=== PATIENT | male | born 1985 | race Caucasian/White ===

== ENCOUNTER 2016-11-20 09:18 | Emergency (ER) | payer OTHER ==
--- NOTE | 2016-11-20 09:41 | ED NURSING NOTES ---
Clinical Report - Nurses [facility] [address] [place] [address] 11/20/2016 9:20 Patient: ROXANNE MO TRIAGE Triage time 09:15. Acuity: LEVEL 3. Chief Complaint: DRUG OVERDOSE (Pt. found in [employer] bathroom. Brought in with EMS and PD. Per PD, Pt. stated he took something. PD found a bottle of pills in the garbage and was concerned pt. took them. Pt. denies taking any pills at this time.). Alert. No acute distress. ( Pt. unable to hold still. Pt. is rocking back and forth and is picking at his skin.). SEPSIS SCREEN: Sepsis Screen. Negative (no infection suspected/documented). PEREZ COMA SCORE: Perez Coma Scale: 15- eyes open spontaneously (4); best verbal response- oriented x 4 (5); best motor response- obeys commands (6). --09:34 Noreen Bucio R.N. 09:21 11/20/16. BP: 162/71. HR: 92. RR: 16. O2 saturation: 100%. Temp: 98.6 F. Ny-Gonzalez pain scale: 2/10. --09:34 Noreen Bucio R.N. Weight: 77.1 kg stated. Height/Length: 73 inches Per Patient. BMI: 22.4. --09:31 Noreen Bucio R.N. Medications None. --09:33 Noreen Bucio R.N. Allergies No Known Drug Allergy. --09:33 Noreen Bucio R.N. History Arrived by EMS. Historian: patient. Unaccompanied. Primary physician (none). This occurred today 1 hour ago. Treatment CORE SHAPER SIDES: None. PAST MEDICAL HX: Immunizations: up-to-date. SOCIAL HX: Heavy tobacco smoker (cigarette)- less than 1 pack per day. Occasional alcohol use. History of heavy IV drug use: heroin, methamphetamines. (daily). ABUSE ASSESSMENT: No report of abuse. NUTRITIONAL RISK ASSESSMENT: The nutritional risk assessment revealed no deficiencies. FUNCTIONAL ASSESSMENT: Functional assessment: no impairments noted. LEARNING NEEDS ASSESSMENT: The learning needs assessment revealed no barriers. --09:34 Noreen Bucio R.N. PROBLEMS: Substance Abuse. --09:33 Noreen Bucio R.N. Interventions ID band on patient. Ambulatory. --09:34 Noreen Bucio R.N. PHYSICAL ASSESSMENT 09:21. Ambulatory to room. GENERAL / NEURO / PSYCH: Alert. Oriented X 4. Appears in no acute distress. Behavior appears abnormal: agitation with hyperactive body language, pacing and rocking (picking at skin). Speech within normal limits. RESPIRATORY: Respirations not labored. CVS: Capillary refill less than 2 seconds. SKIN: Skin intact. Skin is warm and dry. Numerous fresh and old scarring and apparent needle tracks present. Generalized skin rash (scabs). Affect appears within normal limits. --09:49 Noreen Bucio R.N. NURSING PROGRESS NOTES 09:20. vehicle monitor technician, pulse oximeter and NIBP monitor placed on patient; cardiac cath technologist- Lead II; monitor alarms on. Patient gowned. Head of bed elevated. Two patient identifiers checked. Call light placed in reach. Side rails up x 2. Bed placed in lowest position. Brakes of bed on. Patient ready for evaluation- chart flagged. --09:50 Noreen Bucio R.N. DISPOSITION / DISCHARGE 09:45 11/20/16. RR: 18. Additional comments: d/c v/s deferred due to pt. in ED < 1 hour. Pt. appears stable at time of discharge. Pt. wanting to leave. Pt. walking around in the halls and says he wants to go. --09:55 Noreen Bucio R.N. 09:45. Departure time: 944. Condition at departure: stable. No learning barriers present. Discharge instructions provided and reviewed with the patient. Reviewed medication(s) side effects, precautions, dosing and course information. Prescription(s) given to the patient. Reviewed referral to family practice for followup. Patient verbalized understanding. Written instructions provided in Latvian. The patient was discharged home and unaccompanied at time of discharge. He left the Emergency Department ambulatory. Medication list reviewed and validated. --09:56 Noreen Bucio R.N. Locked/Released at 11/20/2016 9:56 by Noreen Buico R.N.
--- NOTE | 2016-11-20 09:41 | ED NURSING NOTES ---
Clinical Report - Nurses [facility] [address] [place] [address] 11/20/2016 9:20 Patient: ROXANNE MO TRIAGE Triage time 09:15. Acuity: LEVEL 3. Chief Complaint: DRUG OVERDOSE (Pt. found in [employer] bathroom. Brought in with EMS and PD. Per PD, Pt. stated he took something. PD found a bottle of pills in the garbage and was concerned pt. took them. Pt. denies taking any pills at this time.). Alert. No acute distress. ( Pt. unable to hold still. Pt. is rocking back and forth and is picking at his skin.). SEPSIS SCREEN: Sepsis Screen. Negative (no infection suspected/documented). PEREZ COMA SCORE: Perez Coma Scale: 15- eyes open spontaneously (4); best verbal response- oriented x 4 (5); best motor response- obeys commands (6). --09:34 Noreen Bucio R.N. 09:21 11/20/16. BP: 162/71. HR: 92. RR: 16. O2 saturation: 100%. Temp: 98.6 F. Ny-Gonzalez pain scale: 2/10. --09:34 Noreen Bucio R.N. Weight: 77.1 kg stated. Height/Length: 73 inches Per Patient. BMI: 22.4. --09:31 Noreen Bucio R.N. Medications None. --09:33 Noreen Bucio R.N. Allergies No Known Drug Allergy. --09:33 Noreen Bucio R.N. History Arrived by EMS. Historian: patient. Unaccompanied. Primary physician (none). This occurred today 1 hour ago. Treatment BACK CLOSER: None. PAST MEDICAL HX: Immunizations: up-to-date. SOCIAL HX: Heavy tobacco smoker (cigarette)- less than 1 pack per day. Occasional alcohol use. History of heavy IV drug use: heroin, methamphetamines. (daily). ABUSE ASSESSMENT: No report of abuse. NUTRITIONAL RISK ASSESSMENT: The nutritional risk assessment revealed no deficiencies. FUNCTIONAL ASSESSMENT: Functional assessment: no impairments noted. LEARNING NEEDS ASSESSMENT: The learning needs assessment revealed no barriers. --09:34 Noreen Bucio R.N. PROBLEMS: Substance Abuse. --09:33 Noreen Bucio R.N. Interventions ID band on patient. Ambulatory. --09:34 Noreen Bucio R.N. PHYSICAL ASSESSMENT 09:21. Ambulatory to room. GENERAL / NEURO / PSYCH: Alert. Oriented X 4. Appears in no acute distress. Behavior appears abnormal: agitation with hyperactive body language, pacing and rocking (picking at skin). Speech within normal limits. RESPIRATORY: Respirations not labored. CVS: Capillary refill less than 2 seconds. SKIN: Skin intact. Skin is warm and dry. Numerous fresh and old scarring and apparent needle tracks present. Generalized skin rash (scabs). Affect appears within normal limits. --09:49 Noreen Bucio R.N. NURSING PROGRESS NOTES 09:20. attache, pulse oximeter and NIBP monitor placed on patient; gear shaver set up operator- Lead II; monitor alarms on. Patient gowned. Head of bed elevated. Two patient identifiers checked. Call light placed in reach. Side rails up x 2. Bed placed in lowest position. Brakes of bed on. Patient ready for evaluation- chart flagged. --09:50 Noreen Bucio R.N. DISPOSITION / DISCHARGE 09:45 11/20/16. RR: 18. Additional comments: d/c v/s deferred due to pt. in ED < 1 hour. Pt. appears stable at time of discharge. Pt. wanting to leave. Pt. walking around in the halls and says he wants to go. --09:55 Noreen Bucio R.N. 09:45. Departure time: 944. Condition at departure: stable. No learning barriers present. Discharge instructions provided and reviewed with the patient. Reviewed medication(s) side effects, precautions, dosing and course information. Prescription(s) given to the patient. Reviewed referral to family practice for followup. Patient verbalized understanding. Written instructions provided in Irish. The patient was discharged home and unaccompanied at time of discharge. He left the Emergency Department ambulatory. Medication list reviewed and validated. --09:56 Noreen Bucio R.N. Locked/Released at 11/20/2016 9:56 by Noreen Bucio R.N.
--- NOTE | 2016-11-20 09:41 | ED CLINICAL REPORT ---
Clinical Report - Physicians/Mid Levels [facility] [address] [place] [address] 11/20/2016 9:20 Patient: ROXANNE MO Time Seen: 920. Arrived- By ambulance. Historian- patient and EMS personnel. HISTORY OF PRESENT ILLNESS Chief Complaint: SKIN RASH. This started several weeks ago and is still present. It is described as itchy and painful. It has been generalized in location. A possible cause has been identified (Pt takes methamphetamines and heroin, but feels he may have parasites in his skin.). No recent medication, insect bite or food exposure. (Pt was transported after police were called for pt being in the bathroom at the store for an extended period of time. Medics report that pt was alert and coherent when they picked him up. Police noted an empty pill bottle in the garbage, but do not know what kind of pills they were. Pt denies taking pills, but does admit to shooting heroin about 5 hours ago.). Similar symptoms previously: Recent medical care: Not recently seen/assessed. REVIEW OF SYSTEMS No fever, chills, sore throat, cough or difficulty breathing. No hoarseness, lump in throat, enlarged lymph nodes, headache or eye irritation. No chest pain, abdominal pain, nausea, diarrhea or difficulty with urination. No joint pain or vomiting. All systems otherwise negative, except as recorded above. PAST HISTORY Problems: Substance Abuse. Additional Surgeries: no known surgeries. Medications: None. Allergies: No Known Drug Allergy. SOCIAL HISTORY Smoker- current status unknown. Alcohol use. History of drug use: heroin, methamphetamines. ADDITIONAL NOTES The nursing notes have been reviewed. PHYSICAL EXAM Vital Signs: 11/20/2016 09:21 BP: 162/71. HR: 92. RR: 16. O2 saturation: 100%. Temp: 98.6 F. Ny-Gonzalez pain scale: 2/10. Have been reviewed. Appearance: Alert. Oriented X3. No acute distress. Eyes: Pupils equal, round and reactive to light. Conjunctivae and eyelids normal. ENT: Nose normal. Neck: Neck supple. CVS: Normal heart rate and rhythm. Heart sounds normal. Respiratory: No respiratory distress. Breath sounds normal. Abdomen: Nontender. No organomegaly. Skin: Skin warm and dry. Normal skin color. Normal skin turgor. (Pt has scabbed lesions scattered in a generalized fashion over his body. Mild erythema is associated with occasional lesions in a small radius, but no induration, edema, or drainage is noted.). Extremities: Normal external inspection. Extremities nontender. Neuro: No motor deficit. No sensory deficit. (Grossly oriented.). LABS, X-RAYS, AND EKG Pulse Oximetry: 11/20/2016 09:21 O2 saturation: 100%. (FIO2 - room air). Interpretation: normal. PROGRESS AND PROCEDURES Course of Care: No emergent condition was identified. Pt was not clinically under the influence of heroin, and his main concern was the rash. I did not find evidence of superinfection. I prescribed him Bacitracin, and have given him the number for dermatology clinic, should he desire further evaluation. Patient counseled in person regarding the patient's stable condition, diagnosis and need for follow-up. Concerns were addressed. Old medical records reviewed. Disposition: Discharged. Condition: stable. CLINICAL IMPRESSION Substance dependence problems: dependence on opiates and methamphetamine. Skin rash. INSTRUCTIONS Warnings: GENERAL WARNINGS: Return or contact your physician immediately if your condition worsens or changes unexpectedly, if not improving as expected, or if other problems arise. OTC Medications: Bacitracin ointment (available over the counter): apply to affected area three times daily as needed for redness until symptoms improve. Dispense one (1) oz tube. One refill. Follow-up: Follow up with doctor [facility] . Understanding of the discharge instructions verbalized by patient. (Electronically signed by Lauren Johnson MD 11/20/2016 10:20)
--- NOTE | 2016-11-20 10:20 | ED MED RECONCILIATION SUMMARY ---
Patient: ROXANNE MO Medication Reconciliation Report [facility] VisitID: [id number] [address] [place] [address] 31y, M Registration Date/Time: 11/20/2016 Weight: 77.1 kg Height/Length: 73 in. BMI: 22.4 ALLERGIES: No Known Drug Allergy The patient's Home Medications are listed below: NONE. The source(s) of the original Home Medication information: Not obtained. The following Medications were given to the patient in the Emergency Department: None. The following Medications were prescribed to the patient: Bacitracin ointment (available over the counter): apply to affected area three times daily as needed for redness until symptoms improve. Dispense one (1) oz tube. One refill. -- Lauren Johnson MD
--- NOTE | 2016-11-20 10:20 | ED DISCHARGE INSTRUCTIONS ---
Patient: ROXANNE MO General Instructions [facility] VisitID: [id number] [place] [address] 31y, M Registration Date/Time: 11/20/2016 Substance dependence problems: dependence on opiates and methamphetamine. Skin rash. INSTRUCTIONS Warnings: GENERAL WARNINGS: Return or contact your physician immediately if your condition worsens or changes unexpectedly, if not improving as expected, or if other problems arise. OTC Medications: Bacitracin ointment (available over the counter): apply to affected area three times daily as needed for redness until symptoms improve. Dispense one (1) oz tube. One refill. Follow-up: Follow up with doctor Juan [facility] . Understanding of the discharge instructions verbalized by patient. ADDITIONAL INFORMATION Dermatitis (Non-Specific) Dermatitis is an inflammation of the skin. The exact cause of your rash is not certain. However, this rash does not appear to be an infection or contagious illness. Taking care of the rash at home should help relieve your symptoms. Home Care: Keep the areas of rash clean by washing it daily. This also helps to keep the skin moist. Use a neutral pH soap such as Dove or Lever 2000. Apply a moisturizing lotion after bathing to prevent dry skin. Avoid skin irritants (wool or silk clothing, grease, oils, some medicines, harsh soaps, and detergents). Wear absorbent, soft fabrics next to the skin rather than rough or scratchy materials. Unless another medicine was prescribed, you may use Hydrocortisone cream (which you can get without a prescription) to reduce the inflammation. Follow Up: Make an appointment with your doctor in the next 1 to 2 weeks if your symptoms do not improve with the above measures. Get Prompt Medical Attention if any of the following occur: Increasing area of redness or pain in the skin Yellow crusts or drainage from the rash Joint pain New rash that appears in other areas of the body Fever of 100.4F (38C) or higher, or as directed by your healthcare provider You have been given the following additional information: Dermatitis, Non-Specific (Electronically signed by Lauren Johnson MD 11/20/2016 10:20)
--- NOTE | 2016-11-20 10:20 | ED MAR SUMMARY ---
..... Medication Administration Record [facility] [address] [id number] Patient: ROXANNE MO Visit ID: [id number] 31y, M Weight: 77.1 kg Height/Length: 73 in BMI: 22.4 ALLERGIES: No Known Drug Allergy
--- NOTE | 2016-11-20 10:20 | ED MED RECONCILIATION SUMMARY ---
Patient: ROXANNE MO Medication Reconciliation Report [facility] VisitID: [id number] [address] [place] [address] 31y, M Registration Date/Time: 11/20/2016 Weight: 77.1 kg Height/Length: 73 in. BMI: 22.4 ALLERGIES: No Known Drug Allergy The patient's Home Medications are listed below: NONE. The source(s) of the original Home Medication information: Not obtained. The following Medications were given to the patient in the Emergency Department: None. The following Medications were prescribed to the patient: Bacitracin ointment (available over the counter): apply to affected area three times daily as needed for redness until symptoms improve. Dispense one (1) oz tube. One refill. -- Lauren Johnson MD
--- NOTE | 2016-11-20 10:20 | ED MAR SUMMARY ---
..... Medication Administration Record [facility] [address], [place] [id number] Patient: ROXANNE MO Visit ID: [id number] 31y, M Weight: 77.1 kg Height/Length: 73 in BMI: 22.4 ALLERGIES: No Known Drug Allergy
--- NOTE | 2016-11-20 10:20 | ED DISCHARGE INSTRUCTIONS ---
Patient: ROXANNE MO General Instructions [facility] VisitID: [id number] [place] [address] 31y, M Registration Date/Time: 11/20/2016 Substance dependence problems: dependence on opiates and methamphetamine. Skin rash. INSTRUCTIONS Warnings: GENERAL WARNINGS: Return or contact your physician immediately if your condition worsens or changes unexpectedly, if not improving as expected, or if other problems arise. OTC Medications: Bacitracin ointment (available over the counter): apply to affected area three times daily as needed for redness until symptoms improve. Dispense one (1) oz tube. One refill. Follow-up: Follow up with doctor Juan J [facility] . Understanding of the discharge instructions verbalized by patient. ADDITIONAL INFORMATION Dermatitis (Non-Specific) Dermatitis is an inflammation of the skin. The exact cause of your rash is not certain. However, this rash does not appear to be an infection or contagious illness. Taking care of the rash at home should help relieve your symptoms. Home Care: Keep the areas of rash clean by washing it daily. This also helps to keep the skin moist. Use a neutral pH soap such as Dove or Lever 2000. Apply a moisturizing lotion after bathing to prevent dry skin. Avoid skin irritants (wool or silk clothing, grease, oils, some medicines, harsh soaps, and detergents). Wear absorbent, soft fabrics next to the skin rather than rough or scratchy materials. Unless another medicine was prescribed, you may use Hydrocortisone cream (which you can get without a prescription) to reduce the inflammation. Follow Up: Make an appointment with your doctor in the next 1 to 2 weeks if your symptoms do not improve with the above measures. Get Prompt Medical Attention if any of the following occur: Increasing area of redness or pain in the skin Yellow crusts or drainage from the rash Joint pain New rash that appears in other areas of the body Fever of 100.4F (38C) or higher, or as directed by your healthcare provider You have been given the following additional information: Dermatitis, Non-Specific (Electronically signed by Lauren Johnson MD 11/20/2016 10:20)
== END 2016-11-20 09:45 | disposition home or self-care (01) ==
LOC: ED SRH 09:18
DX: R21 Rash and other nonspecific skin eruption (principal); F11.20 Opioid dependence, uncomplicated; F15.20 Other stimulant dependence, uncomplicated; F17.210 Nicotine dependence, cigarettes, uncomplicated